=== PATIENT | male | born 1935 | race Caucasian/White ===

== ENCOUNTER → 2017-07-17 | Outpatient (CLI) | payer OTHER, BC ==
[~2017-07-17] MED LIST: ADULT LOW DOSE81 MG PO; CORDARONE PO; FISHOIL PO; FUROSEMIDE 40 M40 MG PO; FUROSEMIDE 80 M80 M1 PO; K-DUR 20 MEQ T20 MEQ PO; LEVOTHYROXINE0.05 MG PO; LIPITOR40 MG PO; LUMITENE30 MG PO; NIACIN 500 MG500 M1 PO; PLAVIX 75 MG TA75 MG PO; PREDNISONE 10 M10 MG PO; SORINE80 MG PO; STRESS PO; VITAMINC500 PO; ZINC PO
--- NOTE | ~2017-07-17 | 2DMMODE ---
[facility] Laurie [employer] [address] 2 D/M-MODE ECHOCARDIOGRAM Name: JOLIEJESS Hussein Room #: REG [facility]#: [id number] Admission: 07/17/17 Attend Phys: [facility]ia [facility] Discharge: Date of : 31 Date of Service: 07/17/17 1618 Report #: [id number] THIS REPORT FOR: //name// APPROVED REPORT Study performed: 07/17/2017 14:25:43 EXAM: Comprehensive 2D, Doppler, and color-flow Echocardiogram Patient Location: Out-Patient Status: routine BSA: 1.80 BP: 110/72 mmHg Rhythm: Atrial Fibrillation/Heart rate between 100-140 Other Information Study Quality: Adequate Technically limited study due to low window, lung artifact.. Indications Atrial Fibrillation 2D Dimensions RVDd: 37.03 mm LVEF(%): 54.29 (>50%) IVSd: 10.89 (7-11mm) LVOT Diam: 19.78 (18-24mm) LVDd: 35.45 mm PWd: 9.52 (7-11mm) LVDs: 25.73 (25-40mm) Aortic Root: 34.14 mm Flowers's LVEF: 54.29 % Volumes Left Atrial Volume (Systole) Single Plane 4CH: 68.25 mL Single Plane 2CH: 70.99 mL LA ESV Index: 43.00 mL/m2 Aortic Valve AoV Peak Kalia.: 1.71 m/s AO Peak Gr.: 11.91 mmHg LVOT Max P.51 mmHg AO Mean Gr.: 7.54 mmHg AO V2 Mean: 1.30 m/s LVOT Max V: 0.79 m/s AO V2 VTI: 28.29 cm NAHID Vmax: 1.[address] [facility] [place] [address] 2 D/M-MODE ECHOCARDIOGRAM Name: JESS DAVE Room #: [facility]#: [id number] Admission: 07/17/17 Attend Phys: Mejia Benítez Discharge: Date of : 31 Date of Service: 07/17/17 1618 Report #: [id number] Mitral Valve MV Decel. Time: 178.46 ms MV E Max Kalia.: 1.70 m/s Pulmonary Valve PV Peak Kalia.: 0.79 m/s PV Peak Gr.: 2.66 mmHg Tricuspid Valve TR Peak Kalia.: 2.82 m/s RAP Estimate: 5.00 mmHg TR Peak Gr.: 32.02 mmHg PA Pressure: 37.00 mmHg Left Ventricle The left ventricle is normal size. There is normal LV segmental wall motion. There is normal left ventricular wall thickness. Left ventricular systolic function is normal. LVEF is 55-60%. This study is not technically sufficient to allow evaluation of the LV diastolic function due to atrial fibrillation. Right Ventricle Right ventricle is not well visualized but appears grossly normal. Atria Left atrium is dilated. Right atrium is dilated. Aortic Valve Aortic valve is moderately calcified. No aortic regurgitation is present. Mild aortic stenosis. Mitral Valve Heavily thickened and calcified anterior mitral valve leaflet. Mild to moderate mitral annular calcification. Mild to moderate mitral regurgitation. Mild to moderate mitral stenosis. Tricuspid Valve The tricuspid valve is normal in structure. Moderate tricuspid regurgitation. Estimated PAP is 35-40mmHg. Pulmonic Valve Pulmonic valve is not well visualized. Trace pulmonic regurgitation. Great Vessels The aortic root is normal in size. Ascending aorta is not well [facility] [address] [place] [address] 2 D/M-MODE ECHOCARDIOGRAM Name: JESS DAVE [facility] #: [facility] [id number] Admission: 07/17/17 Attend Phys: Mejia Benítez Discharge: Date of : 31 Date of Service: 07/17/17 1618 Report #: [id number] visualized. IVC is normal in size and collapses >50% with inspiration. Pericardium There is no pericardial effusion. <Conclusion> Left ventricular systolic function is normal. LVEF is 55-60%. This study is not technically sufficient to allow evaluation of the LV diastolic function due to atrial fibrillation. Right ventricle is not well visualized but appears grossly normal. Aortic valve is moderately calcified. No aortic regurgitation is present. Mild aortic stenosis. Heavily thickened and calcified anterior mitral valve leaflet. Mild to moderate mitral annular calcification. Mild to moderate mitral regurgitation. Mild to moderate mitral stenosis. The tricuspid valve is normal in structure. There is no pericardial effusion. <ELECTRONICALLY SIGNED> By: Mejia Benítez MD 07/17/17 1618 161 17 Mejia Benítez MD /INF
== END ==
LOC: CV 09:27
DX: I08.1 Rheumatic disorders of both mitral and tricuspid valves (principal); I48.91 Unspecified atrial fibrillation; I70.0 Atherosclerosis of aorta

== ENCOUNTER 2018-01-11 07:54 | Inpatient (IN) | payer OTHER, BC ==
[2018-01-11] VITALS (19 sets, daily range): BP systolic 99–135; BP diastolic 53–96
[~2018-01-11] VITALS: Ht 167.6 cm; Wt 73.1 kg
--- NOTE | ~2018-01-11 | EKG ---
[address] [address] ELECTROCARDIOGRAM REPORT Name: JESS DAVE Room #: 204-P ADM IN M.R.#: [id number] Admission: 01/11/18 Attend Phys: Gladis Salcido MD Discharge: Date of : 33 Report #: [id number] THIS REPORT FOR: //name// [facility] Test Date: 2018-01-18 Test Time: 08:11:24 Pat Name: JESS DAVE Department: Room: 204 Gender: M Shoe Fitter: ROSA MARIA : 1935 Requested By: Mejia Benítez Order Number: [id number] MD: Mejia Benítez Measurements Intervals [place] Rate: 138 P: RI: QRS: -27 QRSD: 76 T: 194 QT: 298 QTc: 452 Interpretive Statements Atrial fibrillation Borderline left axis deviation Compared to ECG 01/16/2018 14:33:05 Electronically Signed On 01-19-2018 20:32:21 BOAT MOTOR MECHANIC by Mejia Benítez [email or web address] <ELECTRONICALLY SIGNED> By: Mejia Benítez MD 01/19/182031 0 0 Mejia Benítez MD /JEN
--- NOTE | ~2018-01-11 | 2DMMODE ---
[facility] [place] [address] 2 D/M-MODE ECHOCARDIOGRAM Name: JESS DAVE Room #: 208-P [facility] IN [facility]#: [id number] Admission: 01/11/18 Attend Phys: Gladis Salcido, Discharge: Date of : 31 Date of Service: 01/11/18 1132 Report #: [id number] THIS REPORT FOR: //name// APPROVED REPORT Study performed: 01/11/2018 10:10:05 EXAM: Comprehensive 2D, Doppler, and color-flow Echocardiogram Patient Location: Bedside Room #: ER Status: on-call BSA: 1.81 HR: 129 bpm BP: 114/56 mmHg Rhythm: Atrial Fibrillation Other Information Study Quality: Adequate Technically limited study due to body habitus, lung disease. Risk Factors: Cardiac Risk Factors: Hyperlipidemia Indications Congestive Heart Failure COPD Atrial Fibrillation Dyspnea Chest Pain 2D Dimensions IVSd: 12.82 (7-11mm) LVOT Diam: 19.55 (18-24mm) LVDd: 26.88 mm PWd: 12.03 (7-11mm) Ascending Ao: 29.88 (22-36mm) LVDs: 22.09 (25-40mm) Aortic Root: 32.84 mm Aortic Valve AoV Peak Kalia.: 1.14 m/s AO Peak Gr.: 7.18 mmHg LVOT Max P.83 mmHg LVOT Max V: 0.45 m/s NAHID Vmax: 1.20 cm2 Mitral Valve MV Peak Gr.: 8.64 mmHg [facility] [address] [place] [address] 2 D/M-MODE ECHOCARDIOGRAM Name: JESS DAVE Room #: 208-P [facility] IN [facility]#: [id number] Admission: 01/11/18 Attend Phys: Gladis Salcido, Discharge: Date of : 31 Date of Service: 01/11/18 1132 Report #: [id number] MV Mean Gr.: 4.23 mmHg MV Max Kalia.: 1.47 m/s MV Mean Kalia.: 0.93 m/s MV VTI: 173.03 mm Pulmonary Valve PV Peak Kalia.: 0.61 m/s PV Peak Gr.: 1.49 mmHg Tricuspid Valve TR Peak Kalia.: 2.19 m/s RAP Estimate: 10.00 mmHg TR Peak Gr.: 19.49 mmHg PA Pressure: 30.00 mmHg Left Ventricle The left ventricle is normal size. There is normal LV segmental wall motion. There is normal left ventricular wall thickness. Left ventricular systolic function is normal. LVEF is 50-55%. This study is not technically sufficient to allow evaluation of the LV diastolic function due to atrial fibrillation. Right Ventricle The right ventricle is normal size. The right ventricular systolic function is normal. Atria Left atrium is dilated. Right atrium is dilated. Aortic Valve Aortic valve is calcified. No aortic regurgitation is present. There is no aortic valvular stenosis. Mitral Valve Heavy mitral annular calcification, anterior leaflet calcification. Mild mitral regurgitation. No significant mitral valve stenosis. Tricuspid Valve The tricuspid valve is normal in structure. Mild to moderate tricuspid regurgitation. Pulmonary artery pressure 30 mmHg. Pulmonic Valve The pulmonary valve is normal in structure. There is no pulmonic valvular regurgitation. Great Vessels The aortic root is normal in size. IVC is normal in size and [facility] [address] [place] [address] 2 D/M-MODE ECHOCARDIOGRAM Name: JESS DAVE Room #: 208-P [facility] IN ..#: [id number] Admission: 01/11/18 Attend Phys: Gladis Salcido, Discharge: Date of : 33 Date of Service: 01/11/18 1132 Report #: [id number] collapses <50% with inspiration. Pericardium Small predominantly apical pericardial effusion. <Conclusion> Left ventricular systolic function is normal. There is normal LV segmental wall motion. LVEF is 50-55%. Both atria are mildly dilated. Aortic valve is calcified. No aortic regurgitation or stenosis Heavy mitral annular calcification, anterior leaflet calcification. Mild mitral regurgitation. No significant mitral stenosis. Mild to moderate tricuspid regurgitation. Pulmonary artery pressure 30 mmHg. Small predominantly apical pericardial effusion. <ELECTRONICALLY SIGNED> By: Guru Valle MD, [facility] 01/11/18 1132 113 31 Guru Valle MD, [facility] /INF
--- NOTE | ~2018-01-11 | EKG ---
[address] [address] ELECTROCARDIOGRAM REPORT Name: JESS DAVE Room #: 245-P ADM IN M.R.#: [id number] Admission: 01/11/18 Attend Phys: Gladis Salcido MD Discharge: Date of : 33 Report #: [id number] THIS REPORT FOR: //name// [facility] Test Date: 2018-01-16 Test Time: 14:33:05 Pat Name: JESS DAVE Department: Room: 245 P Gender: M Pretzel Packer: SAM : 1935 Requested By: Mejia Benítez Order Number: [id number] MD: Guru Valle Measurements Intervals [place] Rate: 101 P: AK: QRS: -21 QRSD: 84 T: 203 QT: 354 QTc: 459 Interpretive Statements Atrial fibrillation ventricular premature complexes Borderline left axis deviation Anteroseptal infarct, old Nonspecific ST and T wave abnormality Compared to ECG 01/13/2018 06:22:18 Ventricular premature complex(es) now present Electronically Signed On 01-17-2018 7:42:31 PRINT FINISHING WORKER by Guru Valle [email or web address] <ELECTRONICALLY SIGNED> By: Guru Valle MD, [facility] 01/17/18 0742 1433 1433 Guru Valle MD, [facility] /EPI
--- NOTE | ~2018-01-11 | HC ---
[facility] [place] [address] CONSULTATION Name: JESS DAVE JR Room #: 245-P [facility] IN ..#: [id number] Admission: 01/11/18 Attend Phys: Gladis Salcido MD Discharge: Date of : 33 Report #: [id number] THIS REPORT FOR: //name// CC: Gladis Headley DATE OF SERVICE: 01/11/2018 CONSULTATION: Infectious diseases. HISTORY OF PRESENT ILLNESS: The patient is an 82-year-old white male who presents to the emergency room earlier this morning complaining of chest pain and shortness of breath. The patient had recently been to the grazing aide and had been diagnosed as having atrial fibrillation and fluid overload. He was given diuretic therapy. He presents with increasing dyspnea. He was found to be still in atrial fibrillation with a very rapid ventricular response. The grazing aide was concerned there may be pneumonia, that might have set off his recurring atrial fibrillation. For this reason, infectious disease consultation was requested. The patient was not complaining of fevers, chills, sweats. He was not complaining of any purulent sputum. He did have a cough, but was generally nonproductive. He does have a history of bronchiectasis and pulmonary fibrosis, underlying. PAST MEDICAL HISTORY: Significant for the lung disease as noted. The patient has history of diastolic dysfunction, recurrent atrial fibrillation. Other diagnoses include hypertension, hyperlipidemia, sleep apnea, kidney stones, prostate cancer treated with radiation, hypothyroidism. ALLERGIES: The patient has no drug allergies. FAMILY HISTORY: Noncontributory. SOCIAL HISTORY: The patient is . He has no history of tobacco nor alcohol. REVIEW OF SYSTEMS: Unavailable, as the patient is currently asleep on a BiPAP. He was not disturbed. PHYSICAL EXAMINATION: GENERAL: The patient appears comfortable on a BiPAP, asleep, not in any distress. VITAL SIGNS: He has been afebrile since coming to the hospital. His pulse was initially 150, is now down to 75, although still irregular. CHEST: Sounds are coarse. [facility] [address] [place] [address] CONSULTATION Name: JOLIEJESS Hussein Room #: 245-P [facility] IN ..#: [id number] Admission: 01/11/18 Attend Phys: Gladis Salcido MD Discharge: Date of : 33 Report #: [id number] ABDOMEN: Belly is soft, not tender. EXTREMITIES: Unremarkable. LABORATORY DATA: White count was 19.7, hemoglobin 13, hematocrit 38.9%, platelet 229,000. Electrolytes normal. BUN 29, creatinine 1.3. Liver function tests were normal. TSH was normal. BNP elevated at 9062. Blood and urine cultures are pending. The patient unable to produce sputum for culture. IMAGING DATA: Chest x-ray shows right and left lower lobe atelectasis versus infiltrate versus fibrosis, as well as an element of effusion. ASSESSMENT AND PLAN: In summary, we have a patient who comes in with atrial fibrillation with rapid ventricular response. There is concern whether there may be component of infection, which might have been a trigger. Although the patient does have abnormal chest x-ray. This could just represent the fluid overload. The patient has not had typical signs of pneumonia. At this time, I would like to continue to withhold antibiotic therapy. We can repeat the chest x-ray and CBC tomorrow with so much improvement is made with heart rate control and aggressive diuresis. The leukocytosis and abnormal chest x-ray could just be reaction to the hypoxia from heart failure due to the atrial fibrillation. If the patient does develop purulent sputum or continues to be leukocytotic with worsening chest x-ray, then certainly we should treat him for pneumonia. Over this time, I am interested to see whether his symptoms were all clear with control of his cardiac condition. I appreciate the opportunity of input in the care of this pleasant gentleman. I will be happy to follow him through the weekend until Dr. Simpson returns on Saturday. Thank you for this consultation. <ELECTRONICALLY SIGNED> By: Charan Curran MD 01/13/18 0037 2323 0345 Charan Curran MD /nt
--- NOTE | ~2018-01-11 | EKG ---
[address] [employer] [place] [address] ELECTROCARDIOGRAM REPORT Name: JESS DAVE Room #: 245- ADM IN M.R.#: [id number] Admission: 01/11/18 Attend Phys: Gladis Salcido MD Discharge: Date of : 33 Report #: [id number] THIS REPORT FOR: //name// [facility] Test Date: 2018-01-12 Test Time: 08:39:03 Pat Name: JESS DAVE Department: Room: 245 Gender: M Hose Mender: HELGA : 1935 Requested By: Guru Valle Order Number: [id number] MD: Guru Valle Measurements Intervals [place] Rate: 119 P: 0 DE: 352 QRS: -28 QRSD: 90 T: 17 QT: 373 QTc: 525 Interpretive Statements Atrial fibrillation Poor R wave progression Compared to ECG 01/11/2018 08:07:19 Heart rate has slowed Electronically Signed On 01-12-2018 9:41:26 SURVEILLANCE MONITOR by Guru Valle [email or web address] <ELECTRONICALLY SIGNED> By: Guru Valle MD, [facility] 01/12/18 0941 D: 11838 8 Guru Valle MD, FAC /EPI
--- NOTE | ~2018-01-11 | H ---
[facility] [place] [address] HISTORY AND PHYSICAL Name: JESS DAVE JR Room #: 245-P ADM IN M.R.#: [id number] Admission: 01/11/18 Attend Phys: Gladis Salcido MD Discharge: Date of : 33 Report #: [id number] THIS REPORT FOR: //name// CC: Gladis Headley DATE OF SERVICE: 01/11/2018 REASON FOR PRESENTATION: Shortness of breath and chest pain. HISTORY OF PRESENT ILLNESS: This is an 82-year-old with past medical history of hypertension, hyperlipidemia, AFib. He is also known to have obstructive sleep apnea and is utilizing oxygen, CPAP at home. He was evaluated by his armature balancer 2 days ago. He was found to have fluid overload and AFib. Medications were adjusted such that diltiazem and furosemide were added. He presented with chest pain that has been persistent for the last few days. He described as mid chest pain with no radiation, no associated nausea or vomiting. No relieving factors. No aggravating factors. He talked with his armature balancer and was scheduled to have an echocardiogram on the . Because of the persistent symptoms he presented for further evaluation and management where he was found to be in atrial fibrillation with rapid ventricular response. PAST MEDICAL HISTORY: 1. Right inguinal hernia repair. 2. Atrial fibrillation. 3. Hypertension. 4. Hyperlipidemia. 5. Right shoulder fracture with no surgery. 6. Kidney stone extractions back in 1979. 7. Prostate cancer treated with radiotherapy. 8. Obstructive sleep apnea. 9. Diastolic heart failure. 10. Hypothyroidism. MEDICATIONS: 1. Diltiazem. 2. Lasix. 3. Albuterol. 4. Levothyroxine. 5. Atorvastatin. 6. Sotalol. 7. Xarelto. 8. Ferrous sulfate. 9. Aspirin. 10. Fish oil. 11. Niacin. [facility] [address] [place] [address] HISTORY AND PHYSICAL Name: JESS DAVE Room #: 245-P [facility]#: [id number] Admission: 01/11/18 Attend Phys: Gladis Salcido MD Discharge: Date of : 33 Report #: [id number] ALLERGIES: No known drug allergies. SOCIAL HISTORY: He lives with his . He is independent. No drug or alcohol abuse. FAMILY HISTORY: His mom of pneumonia. His dad had leukemia. REVIEW OF SYSTEMS: GENERAL: Significant for shortness of breath and weakness. CARDIOVASCULAR: Chest pain and shortness of breath. PULMONARY: No cough or hemoptysis. GASTROINTESTINAL: No nausea or vomiting. GENITOURINARY: No frequency, no urgency. MUSCULOSKELETAL: Lower extremity edema. SKIN: No rash or ulceration. NEUROLOGICAL: Significant for weakness. PHYSICAL EXAMINATION: GENERAL: He is alert, oriented. VITAL SIGNS: Blood pressure 114/56, pulse rate is anywhere from 100-140, irregular. HEAD AND NECK: Elevated jugular venous pressure. CHEST: Decreased air entry bilaterally. CARDIOVASCULAR: Irregular S1 and S2. No rub detected. ABDOMEN: Soft, nontender with no hepatosplenomegaly. LOWER EXTREMITIES: +3 edema. LABORATORY DATA: Reviewed. White blood cell count is elevated at 19.7. Chemistry revealed sodium of 138, BUN of 29, creatinine of 1.3, total bilirubin of 1.8. Chest x-ray: Mild pulmonary venous congestion. ASSESSMENT, IMPRESSION AND PLAN: 1. Leukocytosis. 2. Atrial fibrillation with rapid ventricular response. 3. Hypertension. 4. Hyperlipidemia. 5. Hypothyroidism. 6. Obstructive sleep apnea. 7. Admission to the cardiac care unit. 8. Obtain appropriate workup for his leukocytosis. 9. Diltiazem drip was initiated. Titrate off. 10. Obtain cardiac consultation. 11. Resume his home medications. 12. It is likely that he has an underlying infection that had exacerbated his atrial fibrillation and I will wait for Infectious Disease input regarding his [address] [address] HISTORY AND PHYSICAL Name: DAVEJESS Room #: 245-P [facility] IN [facility]#: [id number] Admission: 01/11/18 Attend Phys: Gladis Salcido MD Discharge: Date of : 33 Report #: [id number] leukocytosis. We will not initiate antibiotic until we obtain cultures. 13. Further input from the cardiac team is appreciated regarding his atrial fibrillation and appropriate medications. 14. IV diuresis. 15. Low salt diet. 16. Obtain an echo while he is in the hospital. <ELECTRONICALLY SIGNED> By: Gladis Salcido MD 01/12/18 1636 0958 1016 Gladis Salcido MD /nt
--- NOTE | ~2018-01-11 | 2DMMODE ---
[facility] [place] [address] 2 D/M-MODE ECHOCARDIOGRAM Name: JESS DAVE Room #: 211-P [facility] IN [facility].#: [id number] Admission: 01/11/18 Attend Phys: Gladis Salcido, Discharge: Date of : 33 Date of Service: 01/29/18 1200 Report #: [id number] THIS REPORT FOR: //name// APPROVED REPORT Study performed: 01/29/2018 10:02:27 EXAM: Limited 2D, Doppler, and color-flow Echocardiogram Patient Location: Bedside Room #: 211 Status: routine BSA: 1.82 HR: 97 bpm BP: 112/75 mmHg Rhythm: Atrial Fibrillation Other Information Study Quality: Fair Technically limited study due to pectus chest and COPD. Indications Limited follow-up echo for LV function, small pericardial effusion. Hx: Afib, HTN. (Complete echo done 01/11/18) 2D Dimensions LVOT Diam: 19.98 (18-24mm) Aortic Valve AoV Peak Kalia.: 1.43 m/s AO Peak Gr.: 11.70 mmHg LVOT Max P.11 mmHg LVOT Max V: 0.88 m/s NAHID Vmax: 1.93 cm2 Tricuspid Valve TR Peak Kalia.: 2.80 m/s RAP Estimate: 5.00 mmHg TR Peak Gr.: 32.00 mmHg PA Pressure: 37.00 mmHg Left Ventricle The left ventricle is normal size. Left ventricular systolic function is normal. LVEF is 55%. Aortic Valve Aortic valve is calcified. No aortic regurgitation is present. [facility] [address] [address] 2 D/M-MODE ECHOCARDIOGRAM Name: DAVEJESS Room #: 211-P [facility] IN [facility]#: [id number] Admission: 01/11/18 Attend Phys: Gladis Salcido, Discharge: Date of : 33 Date of Service: 01/29/18 1200 Report #: [id number] Mitral Valve Mitral valve leaflets are calcified. Heavily calcified annulas. Mild to moderate mitral regurgitation. Tricuspid Valve The tricuspid valve is normal in structure. Mild to moderate tricuspid regurgitation. Estimated PAP is 35-40mmHg. Great Vessels IVC is normal in size and collapses >50% with inspiration. Pericardium Trace pericardial fluid noted apically. Right pleural effusion noted. <Conclusion> The left ventricle is normal size. LVEF is 55%. Aortic valve is calcified. Mitral valve leaflets are calcified. Heavily calcified annulas. Mild to moderate mitral regurgitation. Trace pericardial fluid noted apically. Right pleural effusion noted. <ELECTRONICALLY SIGNED> By: Rick Engel MD 01/29/18 1200 1200 Judith Engel MD /INF
--- NOTE | ~2018-01-11 | HC ---
Formerly [facility] [place] [address] CONSULTATION Name: JESS DAVE JR Room #: 245-P [facility] IN ..#: [id number] Admission: 01/11/18 Attend Phys: Gladis Salcido MD Discharge: Date of : 33 Report #: [id number] THIS REPORT FOR: //name// CC: Gladis Headley REASON FOR CONSULTATION: Atrial fibrillation. HISTORY OF PRESENT ILLNESS: The patient is an 82-year-old gentleman with a history of bronchiectasis and pulmonary fibrosis as well as persistent atrial fibrillation. He saw Dr. Mejia Benítez in our office last week and has been followed for this atrial dysrhythmia through our office. When he was seen in the office, he had elevated heart rates as well as increasing shortness of breath. His furosemide dose was recently up titrated and oral Cardizem was added to his medical regimen. When he was seen in the office, his heart rates were 144. He reports increasing shortness of breath over the past week, with increasing lower extremity edema. He denies chest heaviness or pressure. An echocardiogram in 07/2017 demonstrated normal EF, uhdy-wj-ilybcztk mitral stenosis and xodv-vb-zaalsork mitral regurgitation. There was discussion at the time of his visit if atrial fibrillation rates could not be controlled, then proceeding with AV node ablation with pacemaker implantation. His atrial fibrillation dates back about 5 years ago when he was seen at [facility], placed on sotalol and underwent 3 cardioversion procedures. He was maintained in sinus rhythm until recently, at which time, the AFib recurred and a rate control strategy was elected. ALLERGIES: There are no known drug allergies. MEDICATIONS: Medicines include albuterol, aspirin 81 mg daily, atorvastatin 40 mg daily, iron, furosemide 40 mg 3 times a day, metoprolol 150 mg daily, niacin, potassium 20 mEq daily, Xarelto 20 mg daily and Cardizem-CD 180 mg daily. PAST MEDICAL HISTORY: His past history and medical records have been reviewed and include a history of bronchiectasis and pulmonary fibrosis, diastolic heart failure, prostate cancer with radiation treatment, dyslipidemia and sleep apnea. SOCIAL HISTORY: He is . He has a supportive family. Nonsmoker, nondrinker. FAMILY HISTORY: Unremarkable for premature coronary disease. REVIEW OF SYSTEMS: All systems negative, except as that noted above. PHYSICAL EXAMINATION: GENERAL: Examination reveals a pleasant gentleman, who is mildly dyspneic. He is talking in full sentences. Formerly [facility] [address] [place] [address] CONSULTATION Name: JESS DAVE JR Room #: 245-P [facility] IN [facility]#: [id number] Admission: 01/11/18 Attend Phys: Gladis Salcido MD Discharge: Date of : 33 Report #: [id number] VITAL SIGNS: Blood pressure is 114/56, heart rate of 104 and saturations 92. Five feet 6 inches tall, 158 pounds. HEENT: There are neither xanthelasma, subcutaneous xanthomata, oral mucosal or digital cyanosis or kyphoscoliosis present. CHEST: Reveals diminished breath sounds at both bases. Bibasilar rales. CARDIAC EXAMINATION: Reveals an irregularly irregular rhythm with an increased pulmonic closure sound with a soft systolic murmur at the left sternal border. ABDOMEN: Soft and nontender. EXTREMITIES: Reveal 1-2+ pedal edema. Radial pulses are 2+. NEUROLOGIC: He is alert with a nonfocal exam. LABORATORY DATA: Sodium 138, potassium 3.7, creatinine 1.3, glucose 150. ProBNP of 9000. Troponin of 0. White count 19.7, hemoglobin 13, hematocrit 38 and platelet count 229,000. Normal thyroid function studies. Chest x-ray demonstrates interstitial markings suggestive of fibrosis, progressed since 2009. EKG: Atrial fibrillation with poor R-wave progression, nonspecific ST-segment abnormality. IMPRESSION: 1. Permanent atrial fibrillation. 2. Unohk-hs-vsbwedw diastolic heart failure. 3. Bronchiectasis and pulmonary fibrosis, possible underlying lower respiratory tract infection. 4. Sleep apnea. 5. Bane-sg-pddzmobz mitral stenosis; normal ejection fraction. 6. Hypercoagulable. RECOMMENDATIONS: 1. Resume metoprolol succinate and Cardizem. 2. Diuresis. 3. Exacerbation in his lung disease may be driving some of this heart rate elevation. 4. Defer ultimately to Dr. Benítez whether pacemaker and AV node ablation would be reasonable in this setting. I have discussed these issues with the patient and his family. Thank you for asking me to participate in his care. <ELECTRONICALLY SIGNED> By: Guru Valle MD, [facility] 01/13/18 0843 [id number] Guru Valle MD, FAC /nt
--- NOTE | ~2018-01-11 | EKG ---
[address] [address] ELECTROCARDIOGRAM REPORT Name: JOLIEJESS Keenan Room #: 204-P ADM IN M.R.#: [id number] Admission: 01/11/18 Attend Phys: Gladis Salcido MD Discharge: Date of : 33 Report #: [id number] THIS REPORT FOR: //name// [facility] Test Date: 2018-01-22 Test Time: 08:58:58 Pat Name: JESS DAVE Department: Room: 204 P Gender: M Director Of [employer]nel Program: : 1935 Requested By: Areli Mcallister Order Number: [id number] MD: Mejia Benítez Measurements Intervals [place] Rate: 126 P: [place]: QRS: -34 QRSD: 82 T: 182 QT: 314 QTc: 455 Interpretive Statements Atrial fibrillation Left axis deviation Anteroseptal infarct, age indeterminate Repolarization abnormality, prob rate related Compared to ECG 01/18/2018 08:11:24 Myocardial infarct finding now present Early repolarization now present Electronically Signed On 01-22-2018 15:46:27 SOLAR INSTALLATION FOREMAN by Mejia Benítez [email or web address] <ELECTRONICALLY SIGNED> By: Mejia Benítez MD 01/22/18 [phone] [id number] Mejia Benítez MD /EPI
--- NOTE | ~2018-01-11 | EKG ---
[place] [address] [facility] [place] [address] ELECTROCARDIOGRAM REPORT Name: JESS DAVE Room #: 170-7 ADM IN M.R.#: [id number] Admission: 01/11/18 Attend Phys: Gladis Salcido MD Discharge: Date of : 33 Report #: [id number] THIS REPORT FOR: //name// [facility] ED Test Date: 2018-01-11 Test Time: 08:07:19 Pat Name: JESS DAVE Department: Room: 170 Gender: M Reconciler: [facility] : 1935 Requested By: Sid Mcneal Order Number: [id number] MD: Guru Valle Measurements Intervals [place] Rate: 155 P: [place]: QRS: -41 QRSD: 85 T: 117 QT: 317 QTc: 510 Interpretive Statements Atrial fibrillation with rapid V-rate Ventricular premature complex Left axis deviation Poor R wave progression Repolarization abnormality, prob rate related Baseline wander in lead(s) V5 Compared to ECG 01/21/2012 08:07:49 atrial fibrillation has replaced sinus rhythm Electronically Signed On 01-11-2018 10:46:55 CDL DRIVER by Guru Valle [email or web address] <ELECTRONICALLY SIGNED> By: Guru Valle MD, [facility] 01/11/18 [phone] Guru Valle MD, [facility] /EPI
--- NOTE | ~2018-01-11 | HC ---
[facility] [place] [address] CONSULTATION Name: JESS DAVE JR Room #: 245-P ADM IN ..#: [id number] Admission: 01/11/18 Attend Phys: Gladis Salcido MD Discharge: Date of : 33 Report #: [id number] THIS REPORT FOR: //name// CC: Gladis Headley TYPE OF REPORT: Pulmonary consultation. PRIMARY CARE PHYSICIAN: Daniel Headley M.D. REFERRAL PHYSICIAN: Gladis Salcido M.D. REASON FOR REFERRAL: Acute respiratory distress. HISTORY OF PRESENT ILLNESS: The patient is an 82-year-old white male who presents to the Emergency Room with progressive dyspnea. Since admission, the patient had become progressively more dyspneic and respiratory distress. A pulmonary consultation was requested. The patient is followed longitudinally by Dr. Tavo Rojas. He is known to have bronchiectasis. He has sleep apnea, on CPAP. He states that he has been doing fairly well until the past 2 days. He has developed increasing dyspnea. He denies any cough. Denies any febrile illness. He notes mild increase in lower extremity edema. He was admitted earlier today with heart failure. There is an atrial fibrillation with rapid ventricular response. He is currently being given diuretics. According to the RN, since admission, few hours ago, his respiratory status has deteriorated. He is now on noninvasive ventilation. He states that he is still dyspneic but better. He denies any chest pain. Denies any recent nausea, vomiting or diarrhea. PAST MEDICAL HISTORY: Bronchiectasis, previous spirometry is normal; history of chronic diastolic heart failure; echocardiogram from 2012 showed ejection fraction of 55%, xydi-fq-vkhytguj mitral stenosis, igyq-dk-vnwrieht mitral regurgitation; history of prostate cancer, undergoing radiation therapy; [place], on CPAP at 12 cm water pressure and persistent atrial fibrillation, on chronic anticoagulation. PAST SURGICAL HISTORY: Unremarkable. ALLERGIES: None to medications. FAMILY HISTORY: Noncontributory. SOCIAL HISTORY: The patient has never smoked. Denies any alcohol use. [facility] [address] [place] [address] CONSULTATION Name: JOLIEJESS Hussein Room #: 245-P [facility] IN ..#: [id number] Admission: 01/11/18 Attend Phys: Gladis Salcido MD Discharge: Date of : 33 Report #: [id number] REVIEW OF SYSTEMS: As mentioned above, otherwise 10-point system review negative. PHYSICAL EXAMINATION: GENERAL: He is awake and alert, appears moderately dyspneic. VITAL SIGNS: Temperature is 98 degrees Fahrenheit, pulses at 130, respiratory rate is 28, blood pressure is 120/92 mmHg and saturation 90% on BiPAP and O2 supplementation. HEENT: Head is normocephalic and atraumatic. NECK: Supple, without any lymphadenopathy or thyromegaly. CHEST: Breath sounds are moderate with few scattered crackles. No obvious wheezes. CARDIOVASCULAR: Irregularly irregular, question of gallop. No obvious murmurs. Pulses are 2+/4+ bilaterally. ABDOMEN: Soft and nontender. No organomegaly or masses felt. GENITOURINARY: Deferred. RECTAL: Deferred. EXTREMITIES: Less than 1+ edema of bilateral lower extremities. Otherwise, no cyanosis or clubbing. RADIOLOGICAL DATA: Chest x-ray shows small lung volumes, increased interstitial markings bilaterally, compared to the previous chest x-ray from October, there may be mild increase in interstitial edema. The patient had a CT chest performed in 2010 showing evidence of bronchiectasis but without evidence of pulmonary fibrosis or honeycombing. A 2D echocardiogram showed ejection fraction about unchanged at 50%, right and left atrium are mildly dilated, no evidence of clinically significant aortic valve disease, mild mitral regurgitation, pulmonary artery pressure measuring 30 mmHg. LABORATORY DATA: TSH is normal. BNP is 9000. Electrolytes are normal except for creatinine of 1.3. Liver enzymes are mildly abnormal. WBC 19,700, hemoglobin 13.1, platelets are normal, no evidence of clinically significant bandemia, though lymphocyte counts are decreased. Albumin 3.4. Arterial blood gas revealed pH of 7.46, pCO2 of 31 and pO2 of 65 on 3 liters of O2. IMPRESSION: 1. Acute hypoxic respiratory failure in this 82-year-old white male. He is felt to be in heart failure due to atrial fibrillation with rapid ventricular response. Chest x-ray shows increased interstitial markings, though technique is poor. He has history of bronchiectasis. Recent spirometry is normal. Etiology of the patient's worsening respiratory distress due to heart failure. Cannot rule out possibility of lower respiratory tract infection. Suspect underlying bronchiectasis, likely contributing. 2. Bronchiectasis. The patient has never smoked. He denies any history of chronic bronchitis. The patient has four children. He has no prior history of [address] [address] CONSULTATION Name: JESS DAVE Room #: 245-P [facility] IN M.R.#: [id number] Admission: 01/11/18 Attend Phys: Gladis Salcido MD Discharge: Date of : 33 Report #: [id number] pseudomonas colonization. 3. Obstructive sleep apnea, on home continuous positive airway pressure. We will continue. 5. Hriir-ht-bbvlrti diastolic heart failure. 6. Atrial fibrillation with rapid ventricular response. 7. Mild valvular heart disease, mitral regurgitation. 8. History of prostate cancer, status post radiation. RECOMMENDATIONS AND DISCUSSION: Agree with noninvasive ventilation. We will add bronchodilators. Given worsening hypoxia, along with his history of bronchiectasis, we will add steroids along with broad-spectrum antibiotics. Continue diuresis as you are. When discussing with the patient's nurse, his respiratory status has worsened over time and clinically he does appear more distress. Therefore, I would recommend ICU monitoring for the next 24 hours. DVT and GI prophylaxis will be addressed. Thank you for this consultation. <ELECTRONICALLY SIGNED> By: Tony Arana MD 01/12/18 1721 1654 20 Tony Arana MD /nt
--- NOTE | ~2018-01-11 | EKG ---
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 : 1935 Requested By: Guru Valle Order Number: [id number] MD: Guru Valle Measurements Intervals [place] Rate: 109 P: [place]: QRS: -26 QRSD: 92 T: 83 QT: 388 QTc: 523 Interpretive Statements Atrial fibrillation Poor R wave progression Low-voltage Prolonged QT interval Compared to ECG 01/12/2018 08:39:03 No significant change was found Electronically Signed On 01-13-2018 8:14:32 TEST DESK TROUBLE LOCATOR by Guru Valle [email or web address] <ELECTRONICALLY SIGNED> By: Guru Valle MD, [facility] 01/13/1814 1 1 Guru Valle MD, [facility] /EPI
[2018-01-11 08:32] LABS: BASOPHILS 0.1 % (0.0-2.0); HEMATOCRIT 38.9 % (42.0-52.0); HEMOGLOBIN 13.1 gm/dL (14.0-18.0); LYMPHOCYTES 1.8 % (24.0-44.0); MCH 29.9 pg (26.0-34.0); MCHC 33.6 g/dL (28.0-37.0); MCV 88.8 fL (80.0-100.0); MONOCYTES 11.8 % (1.0-8.0); PLATELET COUNT 229 thou/uL (150-400); POLYS 86.3 % (36.0-66.0); RBC 4.38 mil/uL (4.50-6.00); RDW 15.8 % (10.5-14.5); WBC 19.7 thou/uL (4.0-11.0)
[2018-01-11 08:41] LABS: ANION GAP 10 mmol/L (7-16); BUN 29 mg/dL (7-18); CALCIUM 9.5 mg/dL (8.5-10.1); CHLORIDE 101 mmol/L (98-107); CO2 27 mmol/L (21-32); CREATININE 1.3 mg/dL (0.7-1.3); GLUCOSE 150 mg/dL (74-106); POTASSIUM 3.7 mmol/L (3.5-5.1); SODIUM 138 mmol/L (136-145)
[2018-01-11 08:45] LABS: INR 1.8; PROTIME 19.2 Seconds (9.3-11.4)
[2018-01-11 08:49] LABS: ALBUMIN 3.4 g/dL (3.4-5.0); APTT 51.4 Seconds (24.5-32.8); MAGNESIUM 2.4 mg/dL (1.8-2.4); SGOT 23 U/L (15-37); SGPT 26 U/L (30-65); TOTAL BILIRUBIN 1.8 mg/dL (<0.1-1.0); TOTAL PROTEIN 8.3 g/dL (6.4-8.2); TROPONIN-I <0.06 ng/mL (<0.06)
[2018-01-11] MEDS ORDERED: XARELTO20 MG PO (09:03)
[2018-01-11] MEDS ORDERED: CARDIZEM CD120 MG PO ×2 (09:03)
[2018-01-11] MEDS ORDERED: ACCUNEB SO1.25 MG/1 INH (09:03)
[2018-01-11] MEDS ORDERED: IRON325 PO (09:04)
[2018-01-11 12:04] LABS: BE(vivo) -0.9 mmol/L (-2 to +3); HCO3 21.9 mmol/L (22.0-26.0); PCO2 31.1 mmHg (35.0-45.0); PO2 65.3 mmHg (80.0-100.0); pH 7.466 (7.360-7.450); sO2 94.2 % (92.0-98.0)
[2018-01-11 15:10] LABS: URINE BILIRUBIN NEGATIVE (Negative); URINE BLOOD NEGATIVE (Negative); URINE CLARITY CLEAR; URINE COLOR YELLOW; URINE GLUCOSE-RANDOM* NEGATIVE (Negative); URINE KETONES NEGATIVE (Negative); URINE LEUKOCYTES NEGATIVE (Negative); URINE NITRITE NEGATIVE (Negative); URINE PROTEIN (DIPSTICK) TRACE (Negative); URINE SPECIFIC GRAVITY 1.025 (1.005-1.035); URINE UROBILINOGEN 0.2 E.U./dl (0.2-1.0)
[2018-01-11 16:52] LABS: HCO3 21.7 mmol/L (22.0-26.0); PCO2 30.6 mmHg (35.0-45.0); PO2 82.4 mmHg (80.0-100.0); pH 7.469 (7.360-7.450); sO2 96.8 % (92.0-98.0)
[2018-01-12] VITALS (46 sets, daily range): BP systolic 100–133; BP diastolic 59–100
[2018-01-12 03:51] LABS: HEMATOCRIT 37.4 % (42.0-52.0); HEMOGLOBIN 12.4 gm/dL (14.0-18.0); MCH 29.9 pg (26.0-34.0); MCHC 33.1 g/dL (28.0-37.0); MCV 90.2 fL (80.0-100.0); RBC 4.14 mil/uL (4.50-6.00); RDW 15.9 % (10.5-14.5); WBC 13.4 thou/uL (4.0-11.0)
[2018-01-12 04:07] LABS: ALBUMIN 2.9 g/dL (3.4-5.0); ANION GAP 13 mmol/L (7-16); BUN 43 mg/dL (7-18); CALCIUM 8.9 mg/dL (8.5-10.1); CHLORIDE 103 mmol/L (98-107); CO2 24 mmol/L (21-32); CREATININE 1.5 mg/dL (0.7-1.3); GLUCOSE 153 mg/dL (74-106); POTASSIUM 4.6 mmol/L (3.5-5.1); SGOT 22 U/L (15-37); SGPT 24 U/L (30-65); SODIUM 140 mmol/L (136-145); TOTAL BILIRUBIN 1.3 mg/dL (<0.1-1.0); TOTAL PROTEIN 7.5 g/dL (6.4-8.2); TROPONIN-I <0.06 ng/mL (<0.06)
[2018-01-13] VITALS (44 sets, daily range): BP systolic 108–132; BP diastolic 52–84
[2018-01-13 05:33] LABS: HEMOGLOBIN 12.5 gm/dL (14.0-18.0); MCH 28.7 pg (26.0-34.0); MCHC 32.1 g/dL (28.0-37.0); MCV 89.6 fL (80.0-100.0); RBC 4.35 mil/uL (4.50-6.00); RDW 15.4 % (10.5-14.5); WBC 19.5 thou/uL (4.0-11.0)
[2018-01-13 05:50] LABS: CALCIUM 8.9 mg/dL (8.5-10.1); CREATININE 2.3 mg/dL (0.7-1.3); TOTAL BILIRUBIN 1.5 mg/dL (<0.1-1.0); TOTAL PROTEIN 7.6 g/dL (6.4-8.2)
[2018-01-13 10:21] LABS: BE(vivo) -4.7 mmol/L (-2 to +3); HCO3 18.3 mmol/L (22.0-26.0); PCO2 28.3 mmHg (35.0-45.0); PO2 53.3 mmHg (80.0-100.0); pH 7.429 (7.360-7.450); sO2 89.1 % (92.0-98.0)
[2018-01-14] VITALS (23 sets, daily range): BP systolic 109–155; BP diastolic 51–82
[2018-01-14 06:53] LABS: HEMATOCRIT 38.8 % (42.0-52.0); MCH 29.8 pg (26.0-34.0); MCHC 33.5 g/dL (28.0-37.0); MCV 89.2 fL (80.0-100.0); RBC 4.36 mil/uL (4.50-6.00); RDW 15.6 % (10.5-14.5); WBC 13.4 thou/uL (4.0-11.0)
[2018-01-14 06:59] LABS: CALCIUM 8.8 mg/dL (8.5-10.1); CREATININE 2.4 mg/dL (0.7-1.3)
[2018-01-15] VITALS (25 sets, daily range): BP systolic 97–135; BP diastolic 49–72
[2018-01-15 04:42] LABS: HEMATOCRIT 42.2 % (42.0-52.0); HEMOGLOBIN 13.6 gm/dL (14.0-18.0); MCH 28.8 pg (26.0-34.0); MCHC 32.3 g/dL (28.0-37.0); MCV 89.2 fL (80.0-100.0); RBC 4.73 mil/uL (4.50-6.00); RDW 15.4 % (10.5-14.5)
[2018-01-15 05:04] LABS: ALBUMIN 2.6 g/dL (3.4-5.0); CALCIUM 8.5 mg/dL (8.5-10.1); MAGNESIUM 2.7 mg/dL (1.8-2.4); TOTAL BILIRUBIN 1.9 mg/dL (<0.1-1.0); TOTAL PROTEIN 7.2 g/dL (6.4-8.2)
[2018-01-15 05:06] LABS: POTASSIUM 2.8 mmol/L (3.5-5.1)
[2018-01-15 13:34] LABS: MAGNESIUM 2.8 mg/dL (1.8-2.4); POTASSIUM 3.3 mmol/L (3.5-5.1)
[2018-01-16] VITALS (15 sets, daily range): BP systolic 92–122; BP diastolic 45–77
[2018-01-16 01:09] LABS: ADENOVIRUS Negative (Negative); INFLUENZA A Negative (Negative); INFLUENZA B Negative (Negative); METAPNEUMOVIRUS Negative (Negative); PARAINFLUENZA 1 Negative (Negative); PARAINFLUENZA 2 Negative (Negative); PARAINFLUENZA 3 Negative (Negative); RHINOVIRUS Negative (Negative); RSV A Negative (Negative); RSV B Negative (Negative)
[2018-01-16 06:37] LABS: ALBUMIN 2.5 g/dL (3.4-5.0); CALCIUM 8.2 mg/dL (8.5-10.1); CREATININE 1.6 mg/dL (0.7-1.3); PHOSPHORUS 3.2 mg/dL (2.5-4.9); POTASSIUM 3.1 mmol/L (3.5-5.1)
[2018-01-17] VITALS (16 sets, daily range): BP systolic 101–112; BP diastolic 52–77
[2018-01-17 05:13] LABS: ALBUMIN 2.2 g/dL (3.4-5.0); CREATININE 1.2 mg/dL (0.7-1.3); PHOSPHORUS 2.4 mg/dL (2.5-4.9); POTASSIUM 3.5 mmol/L (3.5-5.1)
[2018-01-18] VITALS (25 sets, daily range): BP systolic 89–131; BP diastolic 57–95
[2018-01-18 05:34] LABS: ALBUMIN 2.3 g/dL (3.4-5.0); CALCIUM 7.6 mg/dL (8.5-10.1); PHOSPHORUS 2.9 mg/dL (2.5-4.9); POTASSIUM 4.1 mmol/L (3.5-5.1)
[2018-01-18 07:51] LABS: HEMATOCRIT 43.4 % (42.0-52.0); HEMOGLOBIN 14.4 gm/dL (14.0-18.0); MCH 29.5 pg (26.0-34.0); MCHC 33.1 g/dL (28.0-37.0); MCV 89.1 fL (80.0-100.0); RBC 4.87 mil/uL (4.50-6.00); RDW 15.1 % (10.5-14.5); WBC 21.8 thou/uL (4.0-11.0)
[2018-01-18 12:37] LABS: HEMATOCRIT 41.2 % (42.0-52.0); HEMOGLOBIN 13.8 gm/dL (14.0-18.0)
[2018-01-19] VITALS (15 sets, daily range): BP systolic 102–124; BP diastolic 58–82
[2018-01-19 09:58] LABS: HEMATOCRIT 42.1 % (42.0-52.0); HEMOGLOBIN 13.9 gm/dL (14.0-18.0); MCH 29.3 pg (26.0-34.0); MCV 88.9 fL (80.0-100.0); RBC 4.73 mil/uL (4.50-6.00); RDW 15.5 % (10.5-14.5); WBC 24.6 thou/uL (4.0-11.0)
[2018-01-19 10:03] LABS: CALCIUM 8.1 mg/dL (8.5-10.1); CREATININE 1.2 mg/dL (0.7-1.3); POTASSIUM 3.4 mmol/L (3.5-5.1)
[2018-01-19 12:10] LABS: HEMATOCRIT 42.1 % (42.0-52.0); HEMOGLOBIN 13.9 gm/dL (14.0-18.0)
[2018-01-20 04:00] VITALS: BP 149/95
[2018-01-20 12:16] LABS: HEMATOCRIT 42.6 % (42.0-52.0); HEMOGLOBIN 13.9 gm/dL (14.0-18.0)
[2018-01-20 14:32] LABS: URINE BILIRUBIN NEGATIVE (Negative); URINE BLOOD 3+ (Negative); URINE CLARITY CLEAR; URINE COLOR YELLOW; URINE GLUCOSE-RANDOM* 1+ (Negative); URINE KETONES NEGATIVE (Negative); URINE LEUKOCYTES-REFLEX NEGATIVE (Negative); URINE NITRITE-REFLEX NEGATIVE (Negative); URINE PROTEIN (DIPSTICK) NEGATIVE (Negative); URINE UROBILINOGEN 0.2 E.U./dl (0.2-1.0)
[2018-01-20 14:41] LABS: SQUAMOUS 0-3 Few /LPF (0-3); URINE RBC >20 Many /HPF (0-2); URINE WBC-REFLEX 6-15 Few /HPF (0-5)
[2018-01-20 14:42] LABS: BACTERIA-REFLEX None Seen /HPF (None Seen); CRYSTALS None Seen /LPF (None Seen); HYALINE CASTS 4-10 Moderate /LPF (None Seen)
[2018-01-20 16:15] VITALS: BP 116/68
[2018-01-20 19:31] VITALS: BP 134/70
[2018-01-21 03:10] VITALS: BP 118/81
[2018-01-21 03:32] LABS: HEMATOCRIT 40.1 % (42.0-52.0); HEMOGLOBIN 13.1 gm/dL (14.0-18.0); MCHC 32.6 g/dL (28.0-37.0); PLATELET COUNT 151 thou/uL (150-400); RBC 4.51 mil/uL (4.50-6.00); RDW 15.6 % (10.5-14.5); WBC 22.8 thou/uL (4.0-11.0)
[2018-01-21 04:25] LABS: ABSOLUTE NEUTROPHILS 20.7 thou/uL (1.4-8.2); PLATELET ESTIMATE NORMAL
[2018-01-21 07:30] VITALS: BP 116/80
[2018-01-21 11:20] VITALS: BP 115/73
[2018-01-21 12:05] LABS: HEMATOCRIT 39.7 % (42.0-52.0); HEMOGLOBIN 13.1 gm/dL (14.0-18.0)
[2018-01-21 15:30] VITALS: BP 124/80
[2018-01-21 19:37] VITALS: BP 138/94
[2018-01-22 04:58] VITALS: BP 117/72
[2018-01-22 07:35] VITALS: BP 120/78
[2018-01-22 11:35] VITALS: BP 120/74
[2018-01-22 15:15] VITALS: BP 141/81
[2018-01-22 19:45] VITALS: BP 128/89
[2018-01-23 04:20] VITALS: BP 113/77
[2018-01-23 08:06] VITALS: BP 112/76
[2018-01-23 11:59] VITALS: BP 113/65
[2018-01-23 14:54] VITALS: BP 118/74
[2018-01-23 19:37] VITALS: BP 118/70
[2018-01-24 05:03] LABS: CALCIUM 8.1 mg/dL (8.5-10.1); POTASSIUM 3.9 mmol/L (3.5-5.1)
[2018-01-24 05:18] VITALS: BP 103/69
[2018-01-24 07:55] VITALS: BP 104/40
[2018-01-24 12:50] VITALS: BP 105/67
[2018-01-24 16:10] VITALS: BP 108/69
[2018-01-24 19:40] VITALS: BP 107/67
[2018-01-25 04:15] VITALS: BP 104/71
[2018-01-25 05:21] LABS: CALCIUM 7.7 mg/dL (8.5-10.1); CREATININE 1.1 mg/dL (0.7-1.3); POTASSIUM 3.7 mmol/L (3.5-5.1)
[2018-01-25 08:47] VITALS: BP 129/80
[2018-01-25 08:51] VITALS: BP 129/80
[2018-01-25 12:17] VITALS: BP 107/72
[2018-01-25 16:21] VITALS: BP 123/84
[2018-01-25 19:26] VITALS: BP 130/85
[2018-01-26 04:13] VITALS: BP 133/83
[2018-01-26 04:39] LABS: HEMATOCRIT 36.1 % (42.0-52.0); HEMOGLOBIN 11.7 gm/dL (14.0-18.0); MCH 29.3 pg (26.0-34.0); MCHC 32.5 g/dL (28.0-37.0); MCV 90.1 fL (80.0-100.0); RDW 15.6 % (10.5-14.5); WBC 17.6 thou/uL (4.0-11.0)
[2018-01-26 04:48] LABS: CREATININE 0.9 mg/dL (0.7-1.3); POTASSIUM 3.2 mmol/L (3.5-5.1)
[2018-01-26 07:41] VITALS: BP 135/88
[2018-01-26 11:14] VITALS: BP 119/70
[2018-01-26 15:30] VITALS: BP 123/82
[2018-01-26 20:05] VITALS: BP 122/70
[2018-01-27 06:05] VITALS: BP 137/76
[2018-01-27 06:16] LABS: HEMATOCRIT 38.7 % (42.0-52.0); HEMOGLOBIN 12.3 gm/dL (14.0-18.0); MCH 28.8 pg (26.0-34.0); MCHC 31.9 g/dL (28.0-37.0); MCV 90.2 fL (80.0-100.0); RBC 4.29 mil/uL (4.50-6.00); RDW 15.9 % (10.5-14.5); WBC 13.1 thou/uL (4.0-11.0)
[2018-01-27 06:30] LABS: CALCIUM 7.9 mg/dL (8.5-10.1); CREATININE 0.9 mg/dL (0.7-1.3); POTASSIUM 3.3 mmol/L (3.5-5.1)
[2018-01-27 08:38] VITALS: BP 127/80
[2018-01-27 11:15] VITALS: BP 110/71
[2018-01-27 15:25] VITALS: BP 117/84
[2018-01-27 19:44] VITALS: BP 111/70
[2018-01-28 04:05] LABS: ABSOLUTE NEUTROPHILS 11.6 thou/uL (1.4-8.2); BASOPHILS 0.1 % (0.0-2.0); EOSINOPHILS 0.8 % (0.0-3.0); HEMATOCRIT 35.7 % (42.0-52.0); HEMOGLOBIN 11.6 gm/dL (14.0-18.0); MCH 29.2 pg (26.0-34.0); MCHC 32.5 g/dL (28.0-37.0); MCV 89.8 fL (80.0-100.0); MONOCYTES 8.6 % (1.0-8.0); PLATELET COUNT 109 thou/uL (150-400); POLYS 85.5 % (36.0-66.0); RBC 3.97 mil/uL (4.50-6.00); RDW 15.7 % (10.5-14.5); WBC 13.6 thou/uL (4.0-11.0)
[2018-01-28 04:33] VITALS: BP 105/65
[2018-01-28 04:49] LABS: CALCIUM 7.3 mg/dL (8.5-10.1); CREATININE 0.8 mg/dL (0.7-1.3); POTASSIUM 3.2 mmol/L (3.5-5.1)
[2018-01-28 06:00] LABS: LARGE PLATELETS FEW
[2018-01-28 08:29] VITALS: BP 83/52
[2018-01-28 13:13] VITALS: BP 93/56
[2018-01-28 16:00] VITALS: BP 101/57
[2018-01-28 20:30] VITALS: BP 101/63
[2018-01-29 04:45] VITALS: BP 116/72
[2018-01-29 07:36] LABS: ALBUMIN 1.9 g/dL (3.4-5.0); CALCIUM 7.5 mg/dL (8.5-10.1); CREATININE 0.8 mg/dL (0.7-1.3); PHOSPHORUS 1.8 mg/dL (2.5-4.9); POTASSIUM 4.2 mmol/L (3.5-5.1)
[2018-01-29 08:02] VITALS: BP 112/75
[2018-01-29 11:44] VITALS: BP 114/72
[2018-01-29 14:41] VITALS: BP 97/59
[2018-01-29 19:50] VITALS: BP 117/71
[2018-01-30 04:31] VITALS: BP 101/58
[2018-01-30 08:00] VITALS: BP 111/57
[2018-01-30 12:34] VITALS: BP 126/70
[2018-01-30] MEDS ORDERED: CEFUROXIME250 MG PO ×2 (14:05)
[2018-01-30] MEDS ORDERED: CARDIZEM CD120 MG PO ×2 (14:05)
[2018-01-30] MEDS ORDERED: PACERONE 200 M200 M1 PO ×2 (14:05)
[2018-01-30] MEDS ORDERED: MELATONIN5 M1 PO ×2 (14:05)
[2018-01-30] MEDS ORDERED: SYNTHROID75 MCG PO ×2 (14:05)
[2018-01-30] MEDS ORDERED: IPRAT-ALBUT 0.5-3 ML INH ×2 (14:05)
[2018-01-30] MEDS ORDERED: ACIDOPHILUS1 EAC4 PO ×2 (14:05)
[2018-01-30] MEDS ORDERED: PULMICORT0.5 MG/21 INH ×2 (14:05)
[2018-01-30] MEDS ORDERED: PANTOPRAZOLE SO40 M1 PO ×2 (14:05)
[2018-01-30] MEDS ORDERED: RISPERIDONE 00.25 M1 PO ×2 (14:05)
== END 2018-01-30 15:59 | DRG 177 ==
LOC: ER 07:54 → ICU 09:22 → EROBS 09:22 → 2N 11:16 → ICU 18:10 → 2N 01-19 11:34
PROVIDERS: Emergency Medicine; Family Medicine; Hospitalist; Internal Medicine; Internal Medicine Cardiovascular Disease; Internal Medicine Pulmonary Disease; Nurse Practitioner Acute Care; Specialist
PROC: 5A09357 Assistance with Respiratory Ventilation, Less than 24 Consecutive Hours, Continuous Positive Airway Pressure (ICD-10-PCS; principal; 2018-01-12)
PROC: 5A09357 Assistance with Respiratory Ventilation, Less than 24 Consecutive Hours, Continuous Positive Airway Pressure (ICD-10-PCS; 2018-01-13)
PROC: 5A09357 Assistance with Respiratory Ventilation, Less than 24 Consecutive Hours, Continuous Positive Airway Pressure (ICD-10-PCS; 2018-01-14)
PROC: 5A09357 Assistance with Respiratory Ventilation, Less than 24 Consecutive Hours, Continuous Positive Airway Pressure (ICD-10-PCS; 2018-01-15)
PROC: 5A09357 Assistance with Respiratory Ventilation, Less than 24 Consecutive Hours, Continuous Positive Airway Pressure (ICD-10-PCS; 2018-01-16)
PROC: 5A09357 Assistance with Respiratory Ventilation, Less than 24 Consecutive Hours, Continuous Positive Airway Pressure (ICD-10-PCS; 2018-01-19)
PROC: 5A09357 Assistance with Respiratory Ventilation, Less than 24 Consecutive Hours, Continuous Positive Airway Pressure (ICD-10-PCS; 2018-01-23)
PROC: 5A09357 Assistance with Respiratory Ventilation, Less than 24 Consecutive Hours, Continuous Positive Airway Pressure (ICD-10-PCS; 2018-01-25)
DX: J69.0 Pneumonitis due to inhalation of food and vomit (principal); I50.33 Acute on chronic diastolic (congestive) heart failure; J96.01 Acute respiratory failure with hypoxia; D68.59 Other primary thrombophilia; I38 Endocarditis, valve unspecified; N17.9 Acute kidney failure, unspecified; I48.92 Unspecified atrial flutter; E87.0 Hyperosmolality and hypernatremia; I13.0 Hypertensive heart and chronic kidney disease with heart failure and stage 1 through stage 4 chronic kidney disease, or unspecified chronic kidney disease; E78.00 Pure hypercholesterolemia, unspecified; J44.9 Chronic obstructive pulmonary disease, unspecified; G47.33 Obstructive sleep apnea (adult) (pediatric); E78.5 Hyperlipidemia, unspecified; I48.2 Chronic atrial fibrillation; I05.0 Rheumatic mitral stenosis; E03.9 Hypothyroidism, unspecified; E87.70 Fluid overload, unspecified; N18.9 Chronic kidney disease, unspecified; D69.6 Thrombocytopenia, unspecified; E87.6 Hypokalemia; R13.10 Dysphagia, unspecified; Z87.442 Personal history of urinary calculi; Z85.46 Personal history of malignant neoplasm of prostate; Z82.49 Family history of ischemic heart disease and other diseases of the circulatory system; Z79.01 Long term (current) use of anticoagulants; Z87.81 Personal history of (healed) traumatic fracture; Z83.6 Family history of other diseases of the respiratory system; Z80.6 Family history of leukemia
CPT/HCPCS: 10078; 10081; 10203

== ENCOUNTER 2018-01-17 15:10 | Inpatient (IN) | payer OTHER, BC ==
[~2018-01-17] VITALS: Ht 167.6 cm; Wt 73.2 kg
--- NOTE | ~2018-01-17 | HC ---
[facility] [place] [address] CONSULTATION Name: JESS DAVE JR Room #: 516-1 ADM IN M.R.#: [id number] Admission: 01/30/18 Attend Phys: Malachi Mendoza MD Discharge: Date of : 33 Report #: [id number] THIS REPORT FOR: //name// CC: Malachi Headley ENDOCRINE CONSULTATION LOCATION: The patient at [facility], room 516, bed 1. PATIENT OF: Dr. Mendoza. SUBJECTIVE: One of several recent admissions for this 82-year-old white male with a variety of medical problems, most recently hypoglycemia. The patient is apparently oriented x 3, but offers a totally different history than has previously been obtained from his and other sources. He has reported to have a history of diabetes and was recently on insulin. He has also been on long-term thyroid replacement for hypothyroidism; however, the patient is not aware of either endocrine disorder. He has no known family history of endocrine disease. He states that he first heard of hypoglycemia today. However, there are fingerstick glucoses that were in the hypoglycemic range during his prior acute administration. There is no evidence that the patient has received insulin or oral hypoglycemic agents in the past week during his acute hospitalization. Otherwise, he is not on any medications known to induce glucose abnormalities, and I am unable to elucidate any further pertinent history, other than previously recorded. OBJECTIVE: LABORATORY DATA: Lab glucoses are all normal or above normal, generally in the albi-qx-rhymnmsl hyperglycemic range, with values over the past several days as high as the 180s. Fingerstick glucoses are generally within normal limits, but there are several glucoses, particularly earlier today as low as 31 by fingerstick. It is noted that the patient is on thyroid hormone, but no thyroid function studies are available. There is no hemoglobin A1c and the patient has hypophosphatemia. PHYSICAL EXAMINATION: Frail 82-year-old white male in no acute distress. The patient is able to answer questions, but apparently has limited accurate medical information. He is reported to be 5 feet 6 inches and weigh 160 pounds. He is currently afebrile. Blood pressure 110/52, heart rate 70 and regular. Skin is warm and moist, with evidence of excoriations over the face. Muscle mass is generally poor. The remainder of the routine physical examination is essentially within normal limits. The patient is clinically euthyroid by exam. ASSESSMENT: 1. Recent hypoglycemia, which was asymptomatic, but occurred without precipitating events. There is a history of prior diabetes, which I am unable [address] [address] CONSULTATION Name: JESS DAVE Room #: 516-1 [facility] IN ..#: [id number] Admission: 01/30/18 Attend Phys: Malachi Mendoza MD Discharge: Date of : 33 Report #: [id number] to confirm at this time. The patient states he eats well and weight has been stable; however, nursing reports extremely limited caloric intake, suggesting malnutrition and deficit in gluconeogenesis. 2. Hypothyroidism, although the patient is not aware of this condition. He is currently receiving thyroid replacement. 3. Hypophosphatemia. PLAN: 1. Will evaluate prior control with hemoglobin A1c and fructosamine. 2. Will monitor glucose on a regular basis and utilize low level oral replacement if possible, attempting to avoid high-dose IV glucose, which can precipitate spontaneous hyperinsulinemia and further hypoglycemia. 3. Meanwhile, we will administer D5 at 50 mL per hour in an attempt to provide minimal, but adequate caloric intake. 4. The patient has had recent lab with an insulin level, which will be limited of any value due to the fact that it cannot be done accurately with current laboratory techniques and would need to be correlated with the concurrent glucose dynamics. There is also a proinsulin, which is unlikely again to be helpful since the patient has no characteristics suggestive of insulinoma given that he has not had a slow and gradual reduction in glucose, particularly fasting glucose, but only the sudden occurrence of hypoglycemia within the past 24 hours. 5. Efforts will be made to ensure sufficient p.o. caloric intake to return gluconeogenesis to normal. Will also give the patient 30 millimoles of potassium phosphate infusion to stabilize serum phosphorus, which hopefully will further help to normalize the glucose parameters. Thank you very much for this consultation. I will continue to follow the patient with you for evaluation and treatment of endocrine disease. <ELECTRONICALLY SIGNED> By: Malachi Steiner MD 01/31/18 1319 [id number] 0020 Malachi Steiner MD /nt
--- NOTE | ~2018-01-17 | EKG ---
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1935 Requested By: John Segal Order Number: [id number] MD: Measurements Intervals [place] Rate: 83 P: 254 [place]: 188 QRS: -20 QRSD: 96 T: 200 QT: 398 QTc: 468 Interpretive Statements Sinus or ectopic atrial rhythm Probable left atrial enlargement Borderline left axis deviation Low voltage, extremity leads Borderline repolarization abnormality Compared to ECG 01/22/2018 08:58:58 Ectopic atrial rhythm now present Low QRS voltage now present Atrial fibrillation no longer present Myocardial infarct finding no longer present [email or web address] By: 172 1722 [place] /EPI
--- NOTE | ~2018-01-17 | H ---
[facility] [place] [address] HISTORY AND PHYSICAL Name: JESS DAVE JR Room #: 516-1 ADM IN M.R.#: [id number] Admission: 01/30/18 Attend Phys: Malachi Mendoza MD Discharge: Date of : 33 Report #: [id number] THIS REPORT FOR: //name// CC: Malahci Headley DATE OF SERVICE: 01/30/2018 POSTADMISSION PHYSICIAN EVALUATION: HISTORY OF PRESENT ILLNESS: The patient is an 82-year-old white male who was originally admitted to [facility] on 01/11/2018 with worsening shortness of breath. He was found to have atrial fibrillation with rapid ventricular rate and started on IV rate control medications with transition to orals. He was diagnosed also with acute renal insufficiency, CHF, pneumonia and respiratory failure. He is followed by multiple consultants physicians with Cardiology, ID, Pulmonary and Nephrology all involved. He gradually responded to oxygen therapy, antibiotics, diuresis and fluid management. He remained with rapid ventricular response and there is consideration for Cardiology, possibly electively ablating this patient at a later date if he improves significantly from an overall functional perspective. He did eventually respond to aggressive medical management and his heart rate has been better controlled with Cardiology involvement. Also, during his hospitalization, he had a heme-positive stool. GI was consulted, but given his medical complexity, they did not want to sedate the patient for endoscopic evaluation. He had stable hemodynamics, outpatient elective endoscopic evaluation can still be considered. He was noted to have medical complex with generalized debilitation with a significant decline from his premorbid status. He has now been admitted for acute in-hospital inpatient rehabilitation. PAST MEDICAL HISTORY: Heart disease, hypertension, lung disease, bronchiectasis, atrial fibrillation. MEDICATIONS: Please see the full medication listing. This includes vitamins, herbals, and supplements. ALLERGIES: No known drug allergies. SOCIAL HISTORY: Lives with spouse up until a couple of weeks prior to his acute hospitalization. He was independent with all ADLs, driving, sharing instrumental ADLs with his and did not utilize any assistive device. Over the prior 2 weeks before his acute hospitalization, he had required the use of a walker and had reported 2 falls at home. He had denied injuries with those falls. REVIEW OF SYSTEMS: Complains of generalized weakness and debilitation. [address] [address] HISTORY AND PHYSICAL Name: JESS DAVE Keenan Room #: 516-1 ADM IN [facility].#: [id number] Admission: 01/30/18 Attend Phys: Malachi Mendoza MD Discharge: Date of : 33 Report #: [id number] chest pain, shortness of breath, abdominal discomfort. No specific focal extremity pain complaints. PHYSICAL EXAMINATION: GENERAL: A pleasant 82-year-old white male in no obvious distress. VITAL SIGNS: Last recorded temperature 97.5, pulse 74, respirations 12, blood pressure 97/55. HEAD, EYES, EARS, NOSE, AND THROAT: Appeared to be benign. Facies are symmetric. He is on nasal prong O2, currently on 2 liters. CHEST: Some decreased breath sounds, diffuse throughout. CARDIOVASCULAR: Irregularly irregular. ABDOMEN: Bowel sounds positive, nontender. GENITOURINARY AND RECTAL: Deferred. Functional range of motion of both upper extremities, does have 1+ edema of the distal upper extremities. Strength is a grade 3+/5. Lower extremities, he was unable to lift either leg off the bed ____ grade his strength is probably grade 3- to 2+. DTRs are trace. No focal calf swelling. Trace to mild edema. He is at a low functional level. Overall, transfers have been max assist. He has been unable to ambulate. Working on squat pivot. ASSESSMENT: An 82-year-old white male with the following problem list: 1. Medical complexity with generalized debilitation. 2. Acute respiratory failure. 3. Pulmonary rehabilitation. 4. Atrial fibrillation with rapid ventricular rate. 5. Congestive heart failure, acute exacerbation. 6. Pneumonia, question aspiration. 7. Bronchiectasis. 8. Dysphagia, on modified diet. 9. Obstructive sleep apnea. 10. Chronic obstructive pulmonary disease. 11. Prostate cancer. 12. Hypertension. 13. Hyperlipidemia. PLAN: The patient is admitted for an acute in-hospital inpatient rehabilitation stay. He is on a mechanical soft honey thickened liquid diet. From a post-admission physician evaluation perspective, there are no relevant changes since the preadmission screening. Please see the above review of prior and current medical and functional conditions and comorbidities. Please see the patient's previous and current functional status. As far as risk of complications, the patient has multiple medical comorbidities as noted above. Initial plan of care involves the interdisciplinary acute inpatient rehabilitation program with goal of maximizing the patient's functional independence, so he can hopefully return back to his prior living situation. Measurable functional goals would be for the patient to improve as far as [facility] [address] [place] [address] HISTORY AND PHYSICAL Name: JESS DAVE JR Room #: 516-1 ADM IN M.R.#: [id number] Admission: 01/30/18 Attend Phys: Malachi Mendoza MD Discharge: Date of : 33 Report #: [id number] transfers, mobility, ADLs, so he can be up with the walker versus wheelchair and hopefully be able to perform his basic ADLs and mobility as well as improvement in his swallowing. Prognosis is reasonably good. Estimated length of stay is going to be quite long as he is at a lower level. Would anticipate probably 3 weeks. Potential barriers would include his multiple medical comorbidities and decreased functional status. The patient meets diagnostic criteria for an acute in-hospital inpatient rehabilitation stay. He meets medical necessity criteria and we will have the multiple construction consultant physicians continue to follow. He does have the tolerance for therapies, although he will be put on a low endurance program with his multiple medical comorbidities and inability to tolerate the full acute rehabilitation 3-hour per day program and thus we will need to stretch it out through the whole 7 days. Hopefully, we can further progress in this regard. He does have appropriate discharge goals back to the home setting. By: [id number] Malachi Mendoza MD /SUZY
[~2018-01-17 15:10] MED LIST changes: +ACCUNEB SO1.25 MG/1 INH; +CARDIZEM CD120 MG PO; +IRON325 PO; +XARELTO20 MG PO
[2018-01-30] MEDS ORDERED: CARDIZEM CD120 MG PO ×2 (14:05)
[2018-01-30] MEDS ORDERED: PULMICORT0.5 MG/21 INH ×2 (14:05)
[2018-01-30] MEDS ORDERED: SYNTHROID75 MCG PO ×2 (14:05)
[2018-01-30] MEDS ORDERED: PANTOPRAZOLE SO40 M1 PO ×2 (14:05)
[2018-01-30] MEDS ORDERED: IPRAT-ALBUT 0.5-3 ML INH ×2 (14:05)
[2018-01-30] MEDS ORDERED: RISPERIDONE 00.25 M1 PO ×2 (14:05)
[2018-01-30] MEDS ORDERED: PACERONE 200 M200 M1 PO ×2 (14:05)
[2018-01-30] MEDS ORDERED: ACIDOPHILUS1 EAC4 PO ×2 (14:05)
[2018-01-30] MEDS ORDERED: CEFUROXIME250 MG PO ×2 (14:05)
[2018-01-30] MEDS ORDERED: MELATONIN5 M1 PO ×2 (14:05)
[2018-01-30 17:15] VITALS: BP 104/52
[2018-01-30 19:19] LABS: CALCIUM 7.4 mg/dL (8.5-10.1); CREATININE 0.9 mg/dL (0.7-1.3); POTASSIUM 5.5 mmol/L (3.5-5.1)
[2018-01-30 20:05] VITALS: BP 101/57
[2018-01-31 05:46] LABS: HEMATOCRIT 31.1 % (42.0-52.0); HEMOGLOBIN 10.4 gm/dL (14.0-18.0); MCH 29.8 pg (26.0-34.0); MCHC 33.6 g/dL (28.0-37.0); MCV 88.7 fL (80.0-100.0); RBC 3.5 mil/uL (4.50-6.00); RDW 15.6 % (10.5-14.5); WBC 12.9 thou/uL (4.0-11.0)
[2018-01-31 05:57] LABS: CALCIUM 7.6 mg/dL (8.5-10.1); POTASSIUM 5.1 mmol/L (3.5-5.1)
[2018-01-31 07:52] VITALS: BP 97/55
[2018-01-31 11:08] LABS: C-PEPTIDE 9.4 ng/mL (1.1-4.4); INSULIN 16.7 uIU/mL (2.6-24.9)
[2018-01-31 15:45] LABS: URINE BILIRUBIN NEGATIVE (Negative); URINE BLOOD 3+ (Negative); URINE GLUCOSE-RANDOM* NEGATIVE (Negative); URINE KETONES NEGATIVE (Negative); URINE NITRITE-REFLEX NEGATIVE (Negative); URINE PROTEIN (DIPSTICK) 2+ (Negative); URINE UROBILINOGEN 0.2 E.U./dl (0.2-1.0)
[2018-01-31 15:46] LABS: URINE CLARITY CLOUDY; URINE COLOR RED; URINE LEUKOCYTES-REFLEX 2+ (Negative)
[2018-01-31 15:49] LABS: BACTERIA-REFLEX 1-9 Few /HPF (None Seen); SQUAMOUS None Seen /LPF (0-3); URINE RBC >20 Many /HPF (0-2)
[2018-01-31 15:50] LABS: CASTS None Seen /LPF (None Seen); CRYSTALS None Seen /LPF (None Seen); URINE WBC-REFLEX 0-5 Rare /HPF (0-5); YEAST-REFLEX Present (None Seen)
[2018-01-31 19:07] LABS: GLYCOHEMOGLOBIN (HGB A1C) 6.4 % (4.8-5.6)
[2018-01-31 20:59] VITALS: BP 83/42
[2018-02-01 07:36] LABS: CALCIUM 7.7 mg/dL (8.5-10.1); CREATININE 0.9 mg/dL (0.7-1.3); POTASSIUM 4.3 mmol/L (3.5-5.1)
[2018-02-01 07:38] VITALS: BP 120/69
[2018-02-01 12:46] LABS: BE(vivo) 2.8 mmol/L (-2 to +3); HCO3 25.9 mmol/L (22.0-26.0); PCO2 34.5 mmHg (35.0-45.0); pH 7.494 (7.360-7.450); sO2 90.8 % (92.0-98.0)
[2018-02-01 12:47] LABS: PO2 54.1 mmHg (80.0-100.0)
[2018-02-01 13:05] VITALS: BP 104/50
[2018-02-01 15:05] LABS: HEMATOCRIT 30.3 % (42.0-52.0); HEMOGLOBIN 10.2 gm/dL (14.0-18.0); MCH 29.6 pg (26.0-34.0); MCHC 33.6 g/dL (28.0-37.0); MCV 88.3 fL (80.0-100.0); RBC 3.43 mil/uL (4.50-6.00); RDW 15.7 % (10.5-14.5); WBC 18.4 thou/uL (4.0-11.0)
[2018-02-01 15:15] LABS: CALCIUM 8.1 mg/dL (8.5-10.1); CREATININE 0.9 mg/dL (0.7-1.3); MAGNESIUM 2.1 mg/dL (1.8-2.4); POTASSIUM 4.2 mmol/L (3.5-5.1)
== END 2018-02-01 14:54 | disposition short-term general hospital (02) | DRG 947 ==
PROVIDERS: Internal Medicine; Internal Medicine Cardiovascular Disease; Internal Medicine Pulmonary Disease; Nurse Practitioner; Nurse Practitioner Family; Physical Medicine & Rehabilitation
DX: R53.81 Other malaise (principal); J18.9 Pneumonia, unspecified organism; J96.01 Acute respiratory failure with hypoxia; I50.33 Acute on chronic diastolic (congestive) heart failure; J47.0 Bronchiectasis with acute lower respiratory infection; D68.59 Other primary thrombophilia; E87.0 Hyperosmolality and hypernatremia; J47.1 Bronchiectasis with (acute) exacerbation; N17.9 Acute kidney failure, unspecified; G93.49 Other encephalopathy; I13.0 Hypertensive heart and chronic kidney disease with heart failure and stage 1 through stage 4 chronic kidney disease, or unspecified chronic kidney disease; E87.2 Acidosis; E11.649 Type 2 diabetes mellitus with hypoglycemia without coma; E03.9 Hypothyroidism, unspecified; E83.39 Other disorders of phosphorus metabolism; R13.10 Dysphagia, unspecified; G47.33 Obstructive sleep apnea (adult) (pediatric); E78.5 Hyperlipidemia, unspecified; I05.0 Rheumatic mitral stenosis; D72.829 Elevated white blood cell count, unspecified; D64.9 Anemia, unspecified; R04.0 Epistaxis; I48.2 Chronic atrial fibrillation; N18.9 Chronic kidney disease, unspecified; E11.22 Type 2 diabetes mellitus with diabetic chronic kidney disease; Z79.4 Long term (current) use of insulin
CPT/HCPCS: 10112

== ENCOUNTER 2018-02-01 14:36 | Inpatient (IN) | payer OTHER, BC ==
[2018-02-01] VITALS (60 sets, daily range): BP systolic 68–135; BP diastolic 31–110
[~2018-02-01] VITALS: Ht 167.6 cm; Wt 74.5 kg
--- NOTE | ~2018-02-01 | HC ---
[facility] [place] [address] CONSULTATION Name: JESS DAVE JR Room #: 240-P [facility] IN ..#: [id number] Admission: 02/01/18 Attend Phys: John Segal MD Discharge: 02/03/18 Date of : 33 Report #: [id number] THIS REPORT FOR: //name// CC: John Headley DATE OF SERVICE: 02/03/2018 PALLIATIVE CARE CONSULTATION CHIEF COMPLAINT: Sepsis. HISTORY OF PRESENT ILLNESS: As you know, the patient is an 82-year-old male who presented initially for sepsis and metabolic acidosis as a readmit from [address] [place], [place] [address]ab Unit. The patient has had significant overall decline and has significantly challenging lung status with a history of bronchiectasis, COPD and also congestive heart failure, all contributing to a hypoxic state. The patient has required BiPAP and is struggling significantly with this unfortunately. The patient is currently DNR status. Family is present for the day of my interview. The patient is unable to get significant conversation out due to his overall respiratory distress. PAST MEDICAL HISTORY: Hypertension, hyperlipidemia, bronchiectasis, atrial fibrillation, congestive heart failure, COPD, hypothyroidism, history of prostate cancer and obstructive sleep apnea. MEDICATIONS: Amiodarone, DuoNebs, Cardizem, Protonix, levothyroxine, Risperdal and Pulmicort. SOCIAL HISTORY: Son, [id number] and spouse all present for my interview. Currently DNR status. PAST SURGICAL HISTORY: Right inguinal hernia repair and right shoulder surgery. FAMILY HISTORY: Coronary artery disease. ALLERGIES: No known drug allergies. REVIEW OF SYSTEMS: Unable to obtain significant at this time, although he did admit to respiratory distress and dyspnea. PHYSICAL EXAMINATION: VITAL SIGNS: Temperature 37.2, respirations in the mid 20s, blood pressure 111/63 and 95% on BiPAP. GENERAL: He is in respiratory distress at this current point in time, morphine given at the time of my interview. [facility] [address] [place] [address] CONSULTATION Name: JESS DAVE Room #: [facility].#: [id number] Admission: 02/01/18 Attend Phys: John Segal MD Discharge: 02/03/18 Date of : 33 Report #: [id number] HEENT: Normocephalic. CARDIOVASCULAR: Tachycardic, not significantly edematous currently. RESPIRTORY: Diffuse diminished lung sounds. Also, additionally, he has diffuse wheezing and rhonchi. ABDOMEN: No grimacing to palpation currently. LABORATORY DATA: Hemoglobin 8.7, white blood cells 14.6. Sodium 135 and O2 46.2. ASSESSMENT AND PLAN: 1. Acute hypoxic respiratory failure. At this current point in time, I have discussed significantly with family. I spent approximately 40 minutes on discussion of advanced care planning. I confirmed DNR status. The patient's family wished to pursue palliative comfort care only and wished to pursue removal of BiPAP in support of a natural . I did discuss measures with both the family, nursing staff and also with copyright expert with regards to final wishes and also with regards to last rights. In addition, discussed medication management and medications have been ordered appropriately prior to my visit and I made small changes to those. I do believe intermittent administration would be most beneficial for this patient at this time if we are able to achieve control. Did switch to nasal cannula and also provide and provide movements only for comfort. 2. Chronic obstructive pulmonary disease, significant in addition to bronchiectasis, contributing to acute hypoxic respiratory failure. 3. Congestive heart failure, again may be contributing to acute hypoxic respiratory failure. Again, I believe the patient is in a critical state. It is likely the patient will have significant decline after removal of BiPAP. I did discuss supportive care and active dying appearance with the family. Thank you very much for this consultation. By: [id number] Darrell Babin DO /nt
--- NOTE | ~2018-02-01 | HC ---
[facility] [place] [address] CONSULTATION Name: JESS DAVE JR Room #: 240-P [facility] IN ..#: [id number] Admission: 02/01/18 Attend Phys: John Segal MD Discharge: 02/03/18 Date of : 33 Report #: [id number] THIS REPORT FOR: //name// CC: John Headley DATE OF SERVICE: 02/02/2018 CONSULTATION: Infectious diseases. HISTORY OF PRESENT ILLNESS: The patient is an 82-year-old white male who returns to acute care from acute rehab because of depressed mental status and shortness of breath. The patient was hospitalized at [facility] on 01/11 to 01/30. The patient prior to then was fairly functional older gentleman, independent, driving, caring for himself. He was admitted with atrial fibrillation with rapid ventricular response. He had a complicated hospitalization with heart failure, respiratory failure, renal failure and became very debilitated over the course of days of acute care. He was transferred to acute rehab on the 5th floor. On 02/01, the patient took a turn for the worse with more dyspnea and shortness of breath. He was brought back to acute care with possible sepsis. I saw the patient in the ICU while he was on a BiPAP pump. PAST MEDICAL HISTORY: Significant for hypertension, hyperlipidemia, atrial fibrillation, heart failure, COPD, bronchiectasis, hypothyroidism, prostate cancer. FAMILY HISTORY: Noncontributory. SOCIAL HISTORY: The patient is . I have no history of tobacco nor alcohol. MEDICATION RECONCILIATION: Current medications include furosemide 40 mg IV daily, morphine q. 1 hour p.r.n. anxiety, melatonin 10 mg at bedtime, niacin sustained release 500 mg b.i.d., flu vaccine, sotalol 80 mg b.i.d., furosemide 80 mg p.o. daily, docosahexaenoic acid 1000 mg b.i.d., aspirin 81 mg daily, potassium 20 mEq daily, atorvastatin 40 mg daily, diltiazem 240 mg daily, amiodarone 400 mg daily, budesonide 0.5 mg aerosol twice a day, levothyroxine 75 mcg daily, pantoprazole 20 mg daily. He has been started on vancomycin 1 gram q. 12, Zosyn 3.375 q. 8. He is also on risperidone 0.25 mg p.r.n., norepinephrine drip p.r.n., insulin glucagon. REVIEW OF SYSTEMS: Somewhat limited as the patient is on a BiPAP, but is able to answer questions. He is comfortable. Denies head, neck, chest, GI or problems. He denies any pain. [address] [address] CONSULTATION Name: JESS DAVE Room #: 240-P [facility] IN .R.#: [id number] Admission: 02/01/18 Attend Phys: John Segal MD Discharge: 02/03/18 Date of : 33 Report #: [id number] PHYSICAL EXAMINATION: GENERAL: The patient appears comfortable on the BiPAP, alert, oriented, not in distress. VITAL SIGNS: Show maximum temperature 99.1. SKIN: Shows no rash, lesions, wounds or exanthems. ENT: Negative. HEART: Sounds normal. LUNGS: Clear. Breath sounds are somewhat diminished throughout. ABDOMEN: Belly is soft, nontender. EXTREMITIES: Unremarkable. LABORATORY DATA: White count was 18.4, hemoglobin has gone from 10.2 yesterday to 8.7, hematocrit 26.9%, platelets 179,000. Electrolytes: BUN and creatinine are normal. SGOT elevated at 55, SGPT elevated at 74. B-type natriuretic peptide elevated at 9162. Lactate elevated slightly at 2.1. Troponin elevated at 0.08. The microbiology laboratory report cultures of blood, urine and sputum have been ordered, no results are available. On 01/21, the sputum culture had Serratia. Chest x-ray shows diffuse infiltrates, which could represent atelectasis, infiltrates or effusion and probably combination of the above. ASSESSMENT AND PLAN: In summary, we have a patient who after 20 days in the hospital, transferred to rehab, but after 3 days returns to acute care with increased shortness of breath and confusion. He is doing better on the BiPAP. Chest x-ray shows diffuse infiltrates, which may represent pneumonia, but could represent a significant component of congestive heart failure. His BNP is elevated. At this time, I concur with broad-spectrum antibiotic therapy with vancomycin, Zosyn and Levaquin. We will await results of cultures and the patient's clinical course. Fortunately, his atrial fibrillation continues to be rate controlled on his current medication. He may benefit from more intensive diuresis and we may be able to see improvement in respiratory function and the chest x-ray, if indeed he does have another pneumonia, more intensive antibiotic therapy will be necessary. Should the patient be intubated, we will repeat a sputum for culture. The current regimen would cover the Serratia, which was isolated 2 weeks ago. I appreciate the opportunity of input in the care of this complex gentleman. I will be happy to follow him through the weekend until Dr. Simpson returns on Saturday. Thank you for this consultation. By: [id number] MD mehdi Hightower
[~2018-02-01 14:36] MED LIST changes: +ACIDOPHILUS1 EAC4 PO; +CEFUROXIME250 MG PO; +IPRAT-ALBUT 0.5-3 ML INH; +MELATONIN5 M1 PO; +PACERONE 200 M200 M1 PO; +PANTOPRAZOLE SO40 M1 PO; +PULMICORT0.5 MG/21 INH; +RISPERIDONE 00.25 M1 PO; +SYNTHROID75 MCG PO
[2018-02-01 16:15] LABS: BE(vivo) 3.7 mmol/L (-2 to +3); HCO3 27.2 mmol/L (22.0-26.0); PO2 66.4 mmHg (80.0-100.0); pH 7.484 (7.360-7.450); sO2 94.5 % (92.0-98.0)
[2018-02-01 16:42] LABS: CALCIUM 8.1 mg/dL (8.5-10.1); CREATININE 0.9 mg/dL (0.7-1.3); POTASSIUM 4.3 mmol/L (3.5-5.1)
[2018-02-01 16:48] LABS: ALBUMIN 1.9 g/dL (3.4-5.0); TOTAL BILIRUBIN 0.8 mg/dL (<0.1-1.0); TOTAL PROTEIN 6.1 g/dL (6.4-8.2)
[2018-02-01 17:44] LABS: APTT 32.1 Seconds (24.5-32.8); INR 1.2; PROTIME 12.2 Seconds (9.3-11.4)
[2018-02-01 20:14] LABS: URINE BILIRUBIN NEGATIVE (Negative); URINE BLOOD 3+ (Negative); URINE CLARITY CLOUDY; URINE COLOR YELLOW; URINE GLUCOSE-RANDOM* NEGATIVE (Negative); URINE KETONES NEGATIVE (Negative); URINE NITRITE-REFLEX NEGATIVE (Negative); URINE PROTEIN (DIPSTICK) 1+ (Negative); URINE SPECIFIC GRAVITY 1.015 (1.005-1.035); URINE UROBILINOGEN 0.2 E.U./dl (0.2-1.0)
[2018-02-01 20:15] LABS: URINE LEUKOCYTES-REFLEX 2+ (Negative)
[2018-02-01 20:16] LABS: ABSOLUTE NEUTROPHILS 5.2 thou/uL (1.4-8.2); EOSINOPHILS 0.3 % (0.0-3.0); HEMATOCRIT 31.2 % (42.0-52.0); HEMOGLOBIN 10.6 gm/dL (14.0-18.0); LYMPHOCYTES 2.1 % (24.0-44.0); MCH 30.1 pg (26.0-34.0); MCV 88.8 fL (80.0-100.0); MONOCYTES 1.1 % (1.0-8.0); PLATELET COUNT 181 thou/uL (150-400); POLYS 96.5 % (36.0-66.0); RBC 3.51 mil/uL (4.50-6.00); RDW 15.8 % (10.5-14.5); WBC 5.4 thou/uL (4.0-11.0)
[2018-02-01 20:23] LABS: CALCIUM 7.7 mg/dL (8.5-10.1); CREATININE 0.9 mg/dL (0.7-1.3)
[2018-02-01 20:24] LABS: POTASSIUM 3.3 mmol/L (3.5-5.1)
[2018-02-01 20:29] LABS: HYALINE CASTS 0-3 Few /LPF (None Seen); SQUAMOUS 0-3 Few /LPF (0-3)
[2018-02-01 20:30] LABS: BACTERIA-REFLEX >30 Many /HPF (None Seen); CRYSTALS None Seen /LPF (None Seen); URINE RBC >20 Many /HPF (0-2)
[2018-02-01 20:31] LABS: YEAST-REFLEX Present (None Seen)
[2018-02-02] VITALS (68 sets, daily range): BP systolic 50–142; BP diastolic 29–82
[2018-02-02 03:03] LABS: ABSOLUTE NEUTROPHILS 13.5 thou/uL (1.4-8.2); BASOPHILS 0.3 % (0.0-2.0); EOSINOPHILS 0.1 % (0.0-3.0); HEMATOCRIT 26.9 % (42.0-52.0); HEMOGLOBIN 8.7 gm/dL (14.0-18.0); LYMPHOCYTES 1.5 % (24.0-44.0); MCH 28.9 pg (26.0-34.0); MCHC 32.4 g/dL (28.0-37.0); MCV 89.3 fL (80.0-100.0); MONOCYTES 5.9 % (1.0-8.0); PLATELET COUNT 179 thou/uL (150-400); POLYS 92.2 % (36.0-66.0); RBC 3.01 mil/uL (4.50-6.00); RDW 15.3 % (10.5-14.5); WBC 14.6 thou/uL (4.0-11.0)
[2018-02-02 03:07] LABS: CREATININE 0.9 mg/dL (0.7-1.3); POTASSIUM 3.7 mmol/L (3.5-5.1)
[2018-02-02 10:17] LABS: BE(vivo) -0.1 mmol/L (-2 to +3); HCO3 22.9 mmol/L (22.0-26.0); PCO2 31.4 mmHg (35.0-45.0); PO2 56.2 mmHg (80.0-100.0); sO2 91.6 % (92.0-98.0)
[2018-02-02 17:09] LABS: CALCIUM 6.6 mg/dL (8.5-10.1); CREATININE 0.9 mg/dL (0.7-1.3); POTASSIUM 3.3 mmol/L (3.5-5.1)
[2018-02-02 17:46] LABS: CREATININE 0.9 mg/dL (0.7-1.3); POTASSIUM 3.7 mmol/L (3.5-5.1)
[2018-02-03] VITALS (32 sets, daily range): BP systolic 97–132; BP diastolic 31–88
[2018-02-03 04:11] LABS: ALBUMIN 1.3 g/dL (3.4-5.0); CALCIUM 6.7 mg/dL (8.5-10.1); MAGNESIUM 1.5 mg/dL (1.8-2.4); POTASSIUM 3.3 mmol/L (3.5-5.1); TOTAL BILIRUBIN 0.6 mg/dL (<0.1-1.0); TOTAL PROTEIN 4.9 g/dL (6.4-8.2); TROPONIN-I 0.07 ng/mL (<0.06)
[2018-02-03 04:14] LABS: ABSOLUTE NEUTROPHILS 9.2 thou/uL (1.4-8.2); BASOPHILS 0.1 % (0.0-2.0); EOSINOPHILS 0.5 % (0.0-3.0); HEMATOCRIT 25.1 % (42.0-52.0); HEMOGLOBIN 8.4 gm/dL (14.0-18.0); LYMPHOCYTES 2.7 % (24.0-44.0); MCH 29.9 pg (26.0-34.0); MCHC 33.4 g/dL (28.0-37.0); MCV 89.3 fL (80.0-100.0); MONOCYTES 7.8 % (1.0-8.0); PLATELET COUNT 157 thou/uL (150-400); POLYS 88.9 % (36.0-66.0); RBC 2.81 mil/uL (4.50-6.00); WBC 10.4 thou/uL (4.0-11.0)
[2018-02-03 05:22] LABS: BE(vivo) -2.8 mmol/L (-2 to +3); HCO3 21.8 mmol/L (22.0-26.0); pH 7.389 (7.360-7.450); sO2 82.1 % (92.0-98.0)
[2018-02-03 05:23] LABS: PO2 46.2 mmHg (80.0-100.0)
== END 2018-02-03 15:20 | DRG 871 ==
LOC: ICU 14:36
PROVIDERS: Internal Medicine
PROC: 5A09357 Assistance with Respiratory Ventilation, Less than 24 Consecutive Hours, Continuous Positive Airway Pressure (ICD-10-PCS; principal; 2018-02-01)
PROC: B244ZZZ Ultrasonography of Right Heart (ICD-10-PCS; principal; 2018-02-01)
PROC: 02H633Z Insertion of Infusion Device into Right Atrium, Percutaneous Approach (ICD-10-PCS; principal; 2018-02-01)
PROC: 5A09357 Assistance with Respiratory Ventilation, Less than 24 Consecutive Hours, Continuous Positive Airway Pressure (ICD-10-PCS; 2018-02-02)
PROC: 5A09357 Assistance with Respiratory Ventilation, Less than 24 Consecutive Hours, Continuous Positive Airway Pressure (ICD-10-PCS; 2018-02-03)
DX: A41.9 Sepsis, unspecified organism (principal); J96.21 Acute and chronic respiratory failure with hypoxia; J69.0 Pneumonitis due to inhalation of food and vomit; R65.21 Severe sepsis with septic shock; I50.33 Acute on chronic diastolic (congestive) heart failure; E87.2 Acidosis; N39.0 Urinary tract infection, site not specified; G93.40 Encephalopathy, unspecified; N17.9 Acute kidney failure, unspecified; E87.1 Hypo-osmolality and hyponatremia; D68.59 Other primary thrombophilia; Z66 Do not resuscitate; E78.5 Hyperlipidemia, unspecified; I48.91 Unspecified atrial fibrillation; I11.0 Hypertensive heart disease with heart failure; E87.6 Hypokalemia; I05.0 Rheumatic mitral stenosis; E03.9 Hypothyroidism, unspecified; D64.9 Anemia, unspecified; R07.9 Chest pain, unspecified; G47.33 Obstructive sleep apnea (adult) (pediatric); J44.9 Chronic obstructive pulmonary disease, unspecified; J84.10 Pulmonary fibrosis, unspecified; J47.9 Bronchiectasis, uncomplicated; Z87.01 Personal history of pneumonia (recurrent); Z87.81 Personal history of (healed) traumatic fracture; Z87.442 Personal history of urinary calculi; Z85.46 Personal history of malignant neoplasm of prostate; Z79.01 Long term (current) use of anticoagulants; Z79.82 Long term (current) use of aspirin; Z79.899 Other long term (current) drug therapy; Z82.49 Family history of ischemic heart disease and other diseases of the circulatory system
CPT/HCPCS: 10078; 27000